=== PATIENT | male | born 1995 | race Caucasian/White ===

== ENCOUNTER 2020-01-11 15:00 | Emergency (ER) | payer SELFPAY ==
[~2020-01-11] VITALS: Ht 198.1 cm; Wt 81.6 kg
[2020-01-11 15:21] VITALS: Ht 198.1 cm; Wt 81.6 kg
[2020-01-11 16:54] VITALS: BP 118/50
== END 2020-01-11 16:55 | disposition home or self-care (01) ==
LOC: ED 15:00
DX: R11.2 Nausea with vomiting, unspecified (principal); R10.816 Epigastric abdominal tenderness; F17.210 Nicotine dependence, cigarettes, uncomplicated; F12.10 Cannabis abuse, uncomplicated; Z90.89 Acquired absence of other organs; Z86.73 Personal history of transient ischemic attack (TIA), and cerebral infarction without residual deficits; Z88.8 Allergy status to other drugs, medicaments and biological substances
CPT/HCPCS: 99406